=== PATIENT | female | born 1990 | race Caucasian/White ===

== ENCOUNTER 2017-08-10 10:52 | Emergency (ER) | payer SELFPAY ==
--- NOTE | 2017-08-10 11:00 | UC ---
General HPI - HPI Summary HPI Summary: needle stick 2nd finger left hand----yesterday at 1600-happened after a sub-cut allergy injection, patient washed hand after episode. Source patient gave permission for labs and has had them drawn at the allergy clinic - History of Current Complaint Chief Complaint: UCGeneralIllness Stated Complaint: NEEDLE STICK EXPOSURE Time Seen by Provider: 08/10/17 10:59 Hx Obtained From: Patient Hx From Patient Unobtainable Due To: Dementia Onset/Duration: Sudden Onset, Other - happpened 1600 on 08/09/17 Onset Severity: Mild Current Severity: None - Allergy/Home Medications Allergies/Adverse Reactions: Allergies Allergy/AdvReac Type Severity Reaction Status Date / Time No Known Allergies Allergy Verified 08/10/17 11:03 PMH/Surg Hx/FS Hx/Imm Hx Previously Healthy: Yes - Family History Known Family History: Positive: None - Social History Occupation: Employed Full-time Lives: With Family Alcohol Use: Rare Substance Use Type: None Have You Smoked in the Last Year: No Review of Systems Constitutional: Negative Skin: Negative Eyes: Negative ENT: Negative Respiratory: Negative Cardiovascular: Negative Gastrointestinal: Negative Genitourinary: Negative Motor: Negative Neurovascular: Negative Musculoskeletal: Negative Neurological: Negative Psychological: Negative Is Patient Immunocompromised?: No All Other Systems Reviewed And Are Negative: Yes Physical Exam Triage Information Reviewed: Yes Appearance: Well-Appearing, No Pain Distress, Well-Nourished Vital Signs Reviewed: Yes Eye Exam: Normal Eyes: Positive: Conjunctiva Clear ENT Exam: Normal ENT: Positive: Normal ENT inspection, Hearing grossly normal. Negative: Nasal congestion, Nasal drainage, Trismus, Muffled/hoarse voice Dental Exam: Normal Neck exam: Normal Neck: Positive: Supple, Nontender Respiratory Exam: Normal Respiratory: Positive: Chest non-tender, No respiratory distress, No accessory muscle use Cardiovascular Exam: Normal Cardiovascular: Positive: RRR, Brisk Capillary Refill Musculoskeletal Exam: Normal Musculoskeletal: Positive: Strength Intact, ROM Intact Neurological Exam: Normal Neurological: Positive: Alert, Muscle Tone Normal Psychological Exam: Normal Skin Exam: Normal Diagnostics - Laboratory Diagnostic Studies Completed/Ordered: u preg (-) baseline labs obtained Course/Dx - Course Course Of Treatment: patient wishes to start hiv PEP baseline, hiv, hep c and hep b obtained, plan to follow with Dr. Rivers - Differential Dx - Multi-Symptom Differential Diagnoses: Other - , Needle stick, Infectios disease exposure Provider Diagnoses: Needlestick, HIV PEP Discharge - Discharge Plan Condition: Stable Disposition: HOME Prescriptions: Raltegravir* [Isentress*] 400 mg PO BID #42 tab Tenofovir/Emtricitabine(*) [Truvada*] 1 tab PO DAILY #21 tab Patient Education Materials: Postexposure Prophylaxis (ED) Referrals: [facility],Anibal Yee [Medical Doctor] - 4 Days
[2017-08-10 11:10] VITALS: BP 113/71
[2017-08-10] MEDS ORDERED: Tetan/Diph/Pertus SYR(Tdap)* 0.5 ML SYR(BOOSTRIX) use SYR IM ONE (11:23)
[2017-08-10] MEDS ORDERED: Tenofovir/Emtricitabine(*) TAB PO ONE (11:51)
[2017-08-10] MEDS ORDERED: Raltegravir* 400 MG TAB PO ONE (11:52)
[2017-08-10 16:35] LABS: Hematocrit 38 % (35-47); Hemoglobin 12.3 g/dl (12.0-16.0); Mean Corpuscular HGB Conc 33 g/dl (31-36); Mean Corpuscular Hemoglobin 29 pg (27-31); Mean Corpuscular Volume 90 fL (80-97); Mean Platelet Volume 9 um3 (7.4-10.4); Red Blood Count 4.18 10^6/ul (4.0-5.4); Red Cell Distribution Width 12 % (10.5-15); White Blood Count 7.4 10^3/ul (3.5-10.8)
[2017-08-10 16:43] LABS: Albumin 4.2 g/dL (3.2-5.2); BUN/Creatinine Ratio 9.6 (8-20); Calcium 9.3 mg/dL (8.6-10.3); EGFR African American 121.2 (>60); EGFR Non-African American 94.3 (>60); Potassium 4.4 mmol/L (3.5-5.0); Total Bilirubin 0.6 mg/dL (0.2-1.0); Total Protein 7.2 g/dL (6.4-8.9)
--- NOTE | 2017-08-11 23:32 | UC ---
Progress - Progress Note Progress Note: call patient to assure that she has arranged follow up care as she will need additional follow up and vaccine up date for Hepatitis B Belia Brown [employer] ORGAN[employer]ER-[employer]
--- NOTE | 2017-08-12 08:08 | ED ---
Progress - Progress Note Progress Note: call patient to assure that she has arranged follow up care as she will need additional follow up and vaccine up date for Hepatitis B Belia Brown [employer]IST-[employer] 08/12/17 HEP B AB, HEP C, AND HIV 1&2 NEGATIVE. CONCERNED HEP B ANTIGEN NON REACTIVE. PLEASE REAFFIRM APPOINTMENT WITH DR LARSON. Course/Dx - Course Course Of Treatment: patient wishes to start hiv PEP baseline, hiv, hep c and hep b obtained, plan to follow with Dr. Larson - Diagnoses Provider Diagnoses: Needle exposure
== END 2017-08-10 12:53 | disposition home or self-care (01) ==
LOC: UCEAST 10:52
DX: Z77.21 Contact with and (suspected) exposure to potentially hazardous body fluids (principal); X58.XXXA Exposure to other specified factors, initial encounter; Y92.9 Unspecified place or not applicable
CPT/HCPCS: 36415; 80053; 84702; 85025; 86703; 86706; 86803; 87340; 90715; 99203; G0463